=== PATIENT | male | born 1995 | race Caucasian/White ===

== ENCOUNTER 2019-10-15 18:27 | Emergency (ER) | payer MEDICAID, SELFPAY ==
[2019-10-15 18:28] VITALS: BP 145/83; PULSE 62; RESP 16; TEMP 36.7; O2SAT 94; BMI 34.4
[2019-10-15 18:38] VITALS: BP 145/83; PULSE 66; RESP 16; O2SAT 93
--- NOTE | 2019-10-15 18:41 | XR_ITS ---
WS: [id number] PORTABLE CHEST HISTORY: cp COMPARISON: None available. Lungs are clear and well expanded. No pleural effusion or pneumothorax. Cardiac size: Normal. Mediastinum/Aorta: Normal mediastinum. No osseous abnormality seen. XR/XR chest 1V portable [id number] IMPRESSION: Unremarkable portable chest.
--- NOTE | 2019-10-15 18:42 | ECG_ITS ---
[facility] Test Date: 2019-10-15 Pat Name: Fausto Gooden Department: Room: Gender: Male Education Program Associate: : 1995 Requested By: Amrti Gamboa Order Number: [id number] Peters MD: Shruti Daily M.D. Measurements Intervals [place] Rate: 56 P: 30 WA: 142 QRS: 40 QRSD: 92 T: 82 QT: 395 QTc: 383 Interpretive Statements SINUS BRADYCARDIA No previous ECG available for comparison Electronically Signed On 10-16-2019 18:30:27 CDT by Shruti Daily M.D. [id number]
--- NOTE | 2019-10-15 18:45 | W.ED.CHESTPA ---
HPI - Chest Pain General: Chief Complaint: Chest Pain Stated Complaint: CHEST PAIN Time Seen by Provider: 10/15/19 18:37 History of Present Illness: HPI narrative: Patient is a 24-year-old male who comes to the ED via ambulance due to chest pain. Patient says chest pain started just prior to arrival. He currently reports that he thinks this might be an anxiety attack because he realized it was Father's Day and remembers that last year he had to perform CPR on his stepfather the best way. Patient says chest pain started when he was sitting and looking through a photo album. Chest pain located in the left lower anterior aspect of chest. He started feeling short of breath, cold sweats, nausea, lightheaded as well. Currently here in the ED most of the symptoms have subsided, but he still has some anxiety. Associated symptoms: Reports diaphoresis, dyspnea (resolved before arrival to ED) and nausea (resolved before arriving in the ED); Deny abdominal pain, fever(s), palpitations or vomiting Review of Systems Const: Reports: diaphoresis; Denies: fever(s), chills or fatigue Eyes: Denies: change in vision or eye discomfort ENMT: Denies: throat pain, odynophagia, nasal discharge or nasal congestion Card: Reports: chest pain; Denies: palpitations, edema, swelling of feet/ankles, dyspnea on exertion or orthopnea Resp: Reports: dyspnea (resolved before arrival to ED); Denies: productive cough or non-productive cough GI: Reports: nausea (resolved before arriving in the ED); Denies: abdominal pain, vomiting, diarrhea, constipation or hematochezia : Denies: flank pain, difficulty urinating, dysuria or hematuria Musc: Denies: neck pain, back pain or extremity swelling Skin/Breast: Denies: rash or new lesions Neuro: Denies: headache(s), numbness in extremities or weakness in extremities PFS ED PFSH: Social History Smoking and tobacco status: never smoked Physical Exam Const: COMMON NORMALS: no acute distress, patient oriented x3 and alert GENERAL APPEARANCE: cooperative, comfortable and anxious HENMT: COMMON NORMALS: normocephalic HEAD & SCALP: normocephalic MOUTH: Normal oral and palatal mucosa present THROAT: posterior oropharynx normal and uvula midline Eye: COMMON NORMALS: Equal, round and reactive pupils present PUPIL: Yes Equal, round and reactive pupils present Neck/C-Spine: COMMON NORMALS: supple GENERAL: Yes normal visual inspection Resp: COMMON NORMALS: normal respiratory effort, No retractions, No use of accessory muscles and clear to auscultation bilaterally EFFORT & INSPECTION: Yes able to speak in complete sentences AUSCULTATION: clear to auscultation bilaterally Cardio: COMMON NORMALS: regular rate, regular rhythm, S1 normal heart sound present, S2 normal heart sound present, No gallops present (Cardio), No clicks present (Cardio), No murmurs present (Cardio) and Peripheral pulses 2+ throughout RATE: regular rate RHYTHM: regular rhythm HEART SOUNDS: S1 normal heart sound present and S2 normal heart sound present PERIPHERAL PULSES: Peripheral pulses 2+ throughout GI: COMMON NORMALS: Normal to inspection, nondistended, normoactive bowel sounds present, Soft to palpation, non-tender and no masses PALPATION: Yes Soft to palpation : COMMON NORMALS: Yes no CVA tenderness BLADDER/KIDNEY EXAM: Yes no CVA tenderness Back/Pelvis: COMMON NORMALS: no CVA tenderness Extremity: COMMON NORMALS: normal to inspection and no pedal edema Neuro: COMMON NORMALS: patient oriented x3 and moves all extremities SENSORIUM/ORIENTATION: Yes alert Psych: COMMON NORMALS: speech normal ATTITUDE: Yes calm SPEECH: Yes normal speech MOOD & AFFECT: Yes anxious and Yes sad Skin: COMMON NORMALS: no rashes or lesions noted GENERAL SKIN EXAM: no rashes or lesions noted and dry skin Course Vital Signs: Vital signs: Vital Signs Temperature 98.1 F 10/15/19 18:28 Pulse Rate 66 10/15/19 21:29 Respiratory Rate 19 H 10/15/19 21:29 Blood Pressure 125/83 10/15/19 21:29 Pulse Oximetry 97 10/15/19 21:29 MDM - Chest Pain MDM Narrative: Medical decision making narrative: Patient is a 24-year-old male who comes to the ED via with chest pain, shortness of breath, nausea, cold sweats and lightheadedness. Most of the symptoms resolved by the time patient arrived at the ED. He still having some mild chest pain. Patient was describing that he thinks the had an anxiety attack after thinking the loss of his father and stepfather. CBC and CMP were unremarkable. EKG showed normal sinus rhythm and troponins were negative. Chest x-ray showed no acute findings. Patient was given a dose of Ativan while here in the ED and he felt better and was ready for discharge. Patient wanted a referral to a PCP so I put an order with case management. Patient was discharged and told to follow-up at the scheduled PCP appointment. Return to ED if symptoms worsen. Patient understood and agreed with plan. Lab Data: Attestation: I reviewed the patient's lab results. Labs: Lab Results 10/15/19 10/15/19 10/15/19 Range/Units 17:29 17:29 17:29 WBC 7.4 (4.0-10.0) 10^3/ uL RBC 5.65 H (4.1-5.3) 10^6/u L Hgb 16.7 H (11.7-16.6) g/dL Hct 48.2 (42.0-52.0) % MCV 85.3 (80-94) fL MCH 29.6 (28.0-34.0) pg MCHC 34.6 (30.0-36.0) g/dL RDW 13.4 (12.1-15.1) % Plt Count 228 (130-400) 10^3/c mm MPV 11.2 H (7.4-10.4) fL Neut % (Auto) 56.2 % Lymph % (Auto) 32.1 % [place] % (Auto) 8.2 % Eos % (Auto) 2.3 % Baso % (Auto) 0.8 % Neut # (Auto) 4.2 (1.8-7.7) 10^3/u L Lymph # (Auto) 2.4 (0.8-4.8) 10^3/u L [place] # (Auto) 0.6 (0.2-0.9) 10^3/u L Eos # (Auto) 0.2 (0.0-0.8) 10^3/u L Baso # (Auto) 0.1 (0.0-0.1) 10^3/u L Nucleated RBC % (a uto) 0 % Nucleated RBCs # 0.0 /100WBC Sodium 139 (136-145) mmol/L Potassium 4.0 (3.5-5.1) mmol/L Chloride 102 (98-107) mmol/L Carbon Dioxide 25 (22-29) mmol/L Anion Gap 16.0 (5-19) BUN 9 (6-20) mg/dL Creatinine 1.0 (0.7-1.2) mg/dL GFR Calculation 90.3 (90-130) mL/min Glucose 118 H (65-115) mg/dL Calculated Osmolal ity 285 (285-295) mOsm/k g Calcium 10.0 (8.5-10.5) mg/dL Total Bilirubin 1.5 H (0.15-1.2) mg/dL AST 55 H (0-40) U/L ALT 110 H (0-41) U/L Alkaline Phosphata se 93 (40-130) IU/L Troponin T Baselin e 6 (0-15) ng/L Troponin T 120 Min cha (0-15) ng/L Delta Troponin T (0-10) ABS# Total Protein 7.5 (6.6-8.7) g/dL Albumin 4.7 (3.5-5.2) g/dL Globulin 2.8 (1.3-4.6) g/dL 10/14/ Range/Units 19:51 WBC (4.0-10.0) 10^3/ uL RBC (4.1-5.3) 10^6/u L Hgb (11.7-16.6) g/dL Hct (42.0-52.0) % MCV (80-94) fL MCH (28.0-34.0) pg MCHC (30.0-36.0) g/dL RDW (12.1-15.1) % Plt Count (130-400) 10^3/c mm MPV (7.4-10.4) fL Neut % (Auto) % Lymph % (Auto) % [place] % (Auto) % Eos % (Auto) % Baso % (Auto) % Neut # (Auto) (1.8-7.7) 10^3/u L Lymph # (Auto) (0.8-4.8) 10^3/u L [place] # (Auto) (0.2-0.9) 10^3/u L Eos # (Auto) (0.0-0.8) 10^3/u L Baso # (Auto) (0.0-0.1) 10^3/u L Nucleated RBC % (a uto) % Nucleated RBCs # /100WBC Sodium (136-145) mmol/L Potassium (3.5-5.1) mmol/L Chloride (98-107) mmol/L Carbon Dioxide (22-29) mmol/L Anion Gap (5-19) BUN (6-20) mg/dL Creatinine (0.7-1.2) mg/dL GFR Calculation (90-130) mL/min Glucose (65-115) mg/dL Calculated Osmolal ity (285-295) mOsm/k g Calcium (8.5-10.5) mg/dL Total Bilirubin (0.15-1.2) mg/dL AST (0-40) U/L ALT (0-41) U/L Alkaline Phosphata se (40-130) IU/L Troponin T Baselin e (0-15) ng/L Troponin T 120 Min cha 6.00 (0-15) ng/L Delta Troponin T 0 (0-10) ABS# Total Protein (6.6-8.7) g/dL Albumin (3.5-5.2) g/dL Globulin (1.3-4.6) g/dL Imaging Data^: CXR: Attestation: I personally reviewed and interpreted this imaging study as follows: My impression: No acute findings seen. Ending final radiology report. EKG Data^: EKG 1: Attestation: I personally reviewed and interpreted this EKG as follows: EKG interpretation date: 10/15/19 Interpretation: Sinus bradycardia, 56 bpm, no ST segment elevation or depression seen, P waves present. Discharge Plan Discharge Patient Disposition: Home, Self-Care Clinical Impression: Anxiety attack Condition: Stable Discharge Orders: Discharge Order (Routine); Ordered 10/15/19 Ordered By: Amrit Gamboa Discharge Diet: Regular Discharge Activity: Resume usual activity Patient Instructions: Anxiety (ED) Activity Restrictions/Additional Instructions: Someone should be contacting you from [facility] here in the next several days to set up an appointment with a primary care provider. Go home and rest and make sure to discuss some of your anxiety with your PCP at the scheduled appointment. Discharge Date/Time: 10/15/19 21:36 Coding Level of Care Code ED Trim Die Maker for Chg Fwd Exam Comprehensive
[2019-10-15 18:54] LABS: Basophils # 0.1 10^3/uL (0.0-0.1); Basophils % 0.8 %; Eosinophils # 0.2 10^3/uL (0.0-0.8); Eosinophils % 2.3 %; Hematocrit 48.2 % (42.0-52.0); Hemoglobin 16.7 g/dL (11.7-16.6); Lymphocytes # 2.4 10^3/uL (0.8-4.8); Lymphocytes % 32.1 %; Mean Corpuscular HGB Conc 34.6 g/dL (30.0-36.0); Mean Corpuscular Hemoglobin 29.6 pg (28.0-34.0); Mean Corpuscular Volume 85.3 fL (80-94); Mean Platelet Volume 11.2 fL (7.4-10.4); Monocytes # 0.6 10^3/uL (0.2-0.9); Monocytes % 8.2 %; Neutrophils # 4.2 10^3/uL (1.8-7.7); Neutrophils % 56.2 %; Nucleated Red Blood Cells % 0 %; Platelet Count 228 10^3/cmm (130-400); Red Blood Count 5.65 10^6/uL (4.1-5.3); Red Cell Distribution Width 13.4 % (12.1-15.1); White Blood Count 7.4 10^3/uL (4.0-10.0)
[2019-10-15 19:09] LABS: Alanine Aminotransferase 110 U/L (0-41); Albumin Level 4.7 g/dL (3.5-5.2); Alkaline Phosphatase 93 IU/L (40-130); Aspartate Amino Transferase 55 U/L (0-40); Blood Urea Nitrogen 9 mg/dL (6-20); Carbon Dioxide 25 mmol/L (22-29); Chloride 102 mmol/L (98-107); Globulin 2.8 g/dL (1.3-4.6); Glomerular Filtration Rate 90.3 mL/min (90-130); Glucose 118 mg/dL (65-115); Osmolality Calculated 285 mOsm/kg (285-295); Sodium 139 mmol/L (136-145); Total Bilirubin 1.5 mg/dL (0.15-1.2); Total Protein 7.5 g/dL (6.6-8.7)
[2019-10-15 19:10] LABS: Troponin(5th) Baseline 6 ng/L (0-15)
[2019-10-15] MEDS: LORazepam 2 mg Tablet PO (19:23)
[2019-10-15 19:25] VITALS: BP 128/75; PULSE 78; RESP 16; O2SAT 95
[2019-10-15 20:04] VITALS: BP 125/74; PULSE 68; RESP 17; O2SAT 94
[2019-10-15 20:17] LABS: Troponin 5 2HR Delta 0 ABS# (0-10)
[2019-10-15 21:29] VITALS: BP 125/83; PULSE 66; RESP 19; O2SAT 97
--- NOTE | 2019-10-16 15:19 | DCPLANNER ---
animal husbandry manager had message to speak with patient about getting established with a primary care physician. animal husbandry manager called patient at phone number [phone], unable to speak with patient at this time. animal husbandry manager left a voicemail for patient to return assistant case manager phone call.
== END 2019-10-15 21:36 | disposition home or self-care (01) ==
PROVIDERS: Emergency Provider Physician Assistant
DX: F41.8 Other specified anxiety disorders (principal)
CPT/HCPCS: 12345; 71045; 80053; 84484; 85025; 93005; 99283

== ENCOUNTER → 2020-01-09 12:26 | Outpatient (BNVA) | payer MEDICAID, SELFPAY | PROVIDERS: Visit Provider Psychiatry & Neurology Psychiatry | DX: F31.62 Bipolar disorder, current episode mixed, moderate (principal); Z79.899 Other long term (current) drug therapy; F31.9 Bipolar disorder, unspecified; F81.9 Developmental disorder of scholastic skills, unspecified; F41.1 Generalized anxiety disorder | CPT/HCPCS: 90792; 80053; 80061; 83036; 84443; 85025 ==

== ENCOUNTER → 2020-02-02 13:44 | Outpatient (BNVA) | payer MEDICAID, SELFPAY | PROVIDERS: Visit Provider Psychiatry & Neurology Psychiatry | DX: F31.62 Bipolar disorder, current episode mixed, moderate (principal); F81.9 Developmental disorder of scholastic skills, unspecified; F31.9 Bipolar disorder, unspecified; Z79.899 Other long term (current) drug therapy | CPT/HCPCS: 99213 ==